=== PATIENT | female | born 1995 | race American Indian/Alaskan Native ===

== ENCOUNTER 2016-07-24 14:34 | Emergency (ER) | payer OTHER, MEDICAID ==
[2016-07-24 14:55] VITALS: BP 120/75
[2016-07-24] MEDS ORDERED: TORADOL IM ONE (16:12)
[2016-07-24] MEDS ORDERED: NORCO 5/325 PO ONE (16:13)
[2016-07-24] MEDS ORDERED: FLEXERIL PO ONE (16:13)
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
== END 2016-07-24 17:53 | disposition home or self-care (01) ==
LOC: ED 14:34
DX: R07.81 Pleurodynia (principal); M54.5 Low back pain; V49.59XA Passenger injured in collision with other motor vehicles in traffic accident, initial encounter; W22.10XA Striking against or struck by unspecified automobile airbag, initial encounter; Y93.89 Activity, other specified; Y99.8 Other external cause status; Y92.89 Other specified places as the place of occurrence of the external cause
CPT/HCPCS: 71110; 72100; 81025; 96372; 99284; J1885

== ENCOUNTER 2017-07-24 17:54 | Emergency (ER) | payer SELFPAY ==
[2017-07-24 18:02] VITALS: BP 136/72
[2017-07-24 18:35] LABS: Bilirubin,Urine NEG (Negative); Blood,Urine SM (Negative); Color,Urine Straw (Yellow); Protein,Urine <15 mg/dL mg/dL (Negative); Urobilinogen,Urine < 2.0 mg/dL (<2.0)
[2017-07-24 18:38] LABS: WBC,Urine < 1.0 /HPF (0.0-6.0)
[2017-07-24 19:27] LABS: HCG Qualitative,Urine TNR (Negative)
== END 2017-07-24 22:30 | disposition left against medical advice (07) ==
LOC: ED 17:54
DX: Z00.8 Encounter for other general examination (principal); Z53.21 Procedure and treatment not carried out due to patient leaving prior to being seen by health care provider
CPT/HCPCS: 36415; 81001; 81025; 84702

== ENCOUNTER 2018-03-20 18:35 | Outpatient (CLI) | payer MEDICAID | END 2018-03-20 22:24 | disposition home or self-care (01) | LOC: TRG 18:35 | CPT/HCPCS: 59025 ==

== ENCOUNTER 2019-03-28 11:33 | Emergency (ER) | payer MEDICAID ==
[2019-03-28 12:13] VITALS: BP 114/69
--- NOTE | 2019-03-28 12:20 | Event Note ---
ED Screening Note Date of service: 03/28/19 Time: 12:17 ED Screening Note: 24 y/o female comes for back and swelling of right arm swelling times over 2 years. Was seen by her PCP office This initial assessment/diagnostic orders/clinical plan/treatment(s) is/are subject to change based on patients health status, clinical progression and re- assessment by fellow clinical providers in the ED. Further treatment and workup at subsequent clinical providers discretion. Patient/guardian urged not to elope from the ED as their condition may be serious if not clinically assessed and managed. Initial orders include:
== END 2019-03-28 12:20 | disposition left against medical advice (07) ==
LOC: ED 11:33
DX: M79.601 Pain in right arm (principal); Z53.21 Procedure and treatment not carried out due to patient leaving prior to being seen by health care provider